=== PATIENT | female | born 1995 | race Caucasian/White ===

== ENCOUNTER 2019-05-09 13:44 | Emergency (ER) | payer OTHER ==
[2019-05-09] MEDS ORDERED: cephALEXin 250 MG CAPSULE PO STA (14:55)
[2019-05-09] MEDS ORDERED: SULFAMETH/TRIMETH DS 800/160 MG TABLET PO STA (14:55)
--- NOTE | 2019-05-09 14:58 | ED Physician Documentation ---
History of Present Illness - Stated complaint Stated Complaint: FEMALE - Chief complaint Chief Complaint: General - History obtained from History obtained from: Patient - History of Present Illness Timing: How many days ago (3) Pain level max: 6 Pain level now: 5 - Additonal information Additional information: 23-year-old female presents stating that she had rough intercourse a few days ago and feels like there were vaginal tears at that time. States she has had increased redness and swelling to the vulva and clitoris since that time. [place] lab work, but did not actually see her. She states the pain is now worsening. No fevers. She is currently on her menses. Nothing makes it better. Worse with movement and palpation Review of Systems Constitutional: denies: Fever, Chills Respiratory: denies: Cough GI: denies: Vomiting, Diarrhea Skin: denies: Rash Musculoskeletal: denies: Neck pain, Back pain Neurologic: denies: Headache PD PAST MEDICAL HISTORY - Past Medical History Past Medical History: No - Past Surgical History Past Surgical History: No - Present Medications Home Medications: Ambulatory Orders Medication Instructions Recorded Confirmed Cephalexin [Keflex] 500 mg PO Q6H #28 capsule 05/09/19 Hydrocodone/Acetaminophen 1 - 2 each PO Q6H PRN #14 tablet 05/09/19 [Hydrocodon-Acetaminophen 5-325] Sulfamethox/Trimeth 800/160 1 each PO BID #14 tablet 05/09/19 [Bactrim Ds 800/160] - Allergies Allergies/Adverse Reactions: Allergies Allergy/AdvReac Type Severity Reaction Status Date / Time No Known Drug Allergies Allergy Verified 05/09/19 13:56 - Social History Does the pt smoke?: No Smoking Status: Never smoker Does the pt drink ETOH?: No Does the pt have substance abuse?: No - Immunizations Immunizations are current?: Yes PD ED PE NORMAL - Vitals Vital signs reviewed: Yes - General General: Alert and oriented X 3, No acute distress - HEENT HEENT: Moist mucous membranes - Neck Neck: Supple, no meningeal sign - Cardiac Cardiac: RRR - Respiratory Respiratory: No respiratory distress, Clear bilaterally - Abdomen Abdomen: Soft, Non tender, Non distended - Female Female : Site Safety Representative present (Sari), Other (External exam performed. Jete thema and swelling to the superior aspect of the vulva and clitoris. Small amount of purulent discharge.) - Derm Derm: Warm and dry - Neuro Neuro: Alert and oriented X 3 - Psych Psych: Normal mood, Normal affect Results - Vitals Vitals: Vital Signs - 24 hr 05/09/19 05/09/19 13:53 15:10 Temperature 36.7 C 37.2 C Heart Rate 99 66 Respiratory 19 12 Rate Blood Pressure 139/87 H 122/78 O2 Saturation 100 98 Oxygen O2 Source Room air PD MEDICAL DECISION MAKING - ED course Complexity details: considered differential, d/w patient ED course: 23-year-old female with what appears to be a cellulitis of the vulva. She does have a small amount of purulent discharge. Possible early abscess? Will place on oral antibiotics and follow-up closely with her doctor. Patient is well- appearing, nontoxic. Patient counseled regarding signs and symptoms for which I believe and urgent re-evaluation would be necessary. Patient with good understanding of and agreement to plan and is comfortable going home at this time This document was made in part using voice recognition software. While efforts are made to proofread this document, sound alike and grammatical errors may occur. Departure - Departure Disposition: 01 Home, Self Care Clinical Impression: Cellulitis Qualifiers: Site of cellulitis: trunk Site of cellulitis of trunk: perineum Qualified Code(s): L03.315 - Cellulitis of perineum Condition: Good Instructions: ED Infec Skin Cellulitis Follow-Up: [facility] [Provider Group] - Within 3 Days Prescriptions: Cephalexin [Keflex] 500 mg PO Q6H #28 capsule Hydrocodone/Acetaminophen [Hydrocodon-Acetaminophen 5-325] 1 - 2 each PO Q6H PRN #14 tablet PRN Reason: pain Sulfamethox/Trimeth 800/160 [Bactrim Ds 800/160] 1 each PO BID #14 tablet Comments: Take all antibiotics until gone. Return if you worsen. Follow-up with your doctor for further care. You should improve over the next 24 to 48 hours. Do not drink alcohol or drive while on narcotic pain medicine. Note that many narcotic pain relievers also contain tylenol/acetaminophen. Please ensure that your total dose of acetaminophen from all sources does not exceed 3 grams (3000mg) per day. You may constipated on this medication, take a stool softener such as "Colace" twice a day while you are on it. Also recommend a [id number] laxative such as senna or MiraLAX any day that you do not have a bowel movement. If you received narcotic pain medication in the emergency department, do not drive or operate machinery for the next 24 hours. Discharge Date/Time: 05/09/19 15:16
[2019-05-09 15:11] VITALS: BP 122/78
== END 2019-05-09 15:16 | disposition home or self-care (01) ==
LOC: ED 13:44
DX: L03.315 Cellulitis of perineum (principal)
CPT/HCPCS: 99283; 99284; A9270